=== PATIENT | female | born 1975 | race Caucasian/White ===

== ENCOUNTER 2019-06-21 08:38 | Emergency (ER) | payer OTHER ==
[2019-06-21 08:49] VITALS: BP 118/71; PULSE 97; TEMP 98.1; BMI 29.9
[2019-06-21] MEDS ORDERED: KETOROLAC TROMETHAMINE 60 MG/2 ML VIAL IM ONE (09:06)
[2019-06-21] MEDS ORDERED: KETOROLAC TROMETHAMINE 60 MG/2 ML VIAL ONE (09:19)
--- NOTE | 2019-06-21 09:30 | PDOC ---
History of Present Illness - General Chief Complaint: Pain Stated Complaint: LT. KNEE PAIN Time Seen by Provider: 06/21/19 09:01 History Source: Patient - History of Present Illness Occurred: reports: yesterday Severity: Yes: severe Lower Extremity Pain Location: left: knee Past History - Past Medical History Allergies/Adverse Reactions: Allergies Allergy/AdvReac Type Severity Reaction Status Date / Time No Known Allergies Allergy Verified 06/21/19 08:48 Home Medications: Ambulatory Orders Ibuprofen [Motrin -] 600 mg PO TID #30 tablet 01/18/14 Naproxen 500 mg PO BID #30 tablet 06/21/19 Asthma: No Cancer: No Cardiac Disorders: No COPD: No Diabetes: No HTN: No Seizures: No Thyroid Disease: No - Psycho Social/Smoking Cessation Hx Smoking Status: No Smoking History: Never smoked Have you smoked in the past 12 months: No Number of Cigarettes Smoked Daily: 0 Hx Alcohol Use: No Drug/Substance Use Hx: No Hx Substance Use Treatment: No Review of Systems - Review of Systems Constitutional: No: Chills, Fever Musculoskeletal: Yes: Joint Pain, Joint Swelling *Physical Exam - Vital Signs Last Vital Signs Temp Pulse Resp BP Pulse Ox 98.1 F 97 H 18 118/71 99 06/21/19 08:46 06/21/19 08:46 06/21/19 08:46 06/21/19 08:46 06/21/19 08:46 - Physical Exam General Appearance: Yes: Appropriately Dressed, Moderate Distress HEENT: positive: Normal Voice Neck: positive: Supple Respiratory/Chest: negative: Respiratory Distress Extremity: positive: Swelling (minimal swelling diffusely w/ sig ttp to medially , no obvious effusion, FROMI, limping in facility, no hot, red joint) Integumentary: positive: Dry, Warm Neurologic: positive: Fully Oriented, Alert, Normal Mood/Affect ED Treatment Course - RADIOLOGY Radiology Studies Ordered: Category Date Time Status KNEE 2 POS-LEFT [RAD] Stat Radiology 06/21/19 09:06 Taken Medical Decision Making - Medical Decision Making 06/21/19 09:25 43 yo F, no sig hx, here with severe pain to L knee since yesterday. Pain mostly located to medial knee and hurts to bear weight. Has had intermittent L knee pain since 2010 per patient and sometimes feel her knee "pop out of place" . Has never been evaluated by orthopedics. No recent trauma. Denies any fever or chills. Currently limping. No history of gout or septic joint. No obvious RF for DVT/PE see exam Atraumatic knee pain Recurrent ?MSK, i.e arthritis, etc, no e/o infxn, XR without effusion today, no RF for DVT /PE -dose of toradol given -GRISELDA placed -Dc w/ pain control and ortho referral 06/21/19 09:46 Discharge - Discharge Information Problems reviewed: Yes Clinical Impression/Diagnosis: Knee pain, left Qualifiers: Chronicity: acute Qualified Code(s): M25.562 - Pain in left knee Condition: Good Disposition: HOME - Additional Discharge Information Prescriptions: Naproxen 500 mg PO BID #30 tablet - Follow up/Referral Referrals: Susan Zambrano MD [Primary Care Provider] - - Patient Discharge Instructions Patient Printed Discharge Instructions: DI for Knee Pain Additional Instructions: La causa de del valle dolor de rodilla no est kingsley en julia momento, vickey necesitar nisha evaluacin adicional con ortopedia. Por favor llame al Dr. Martel esta semana para nisha jennifer Print Language: QATARI - Post Discharge Activity Work/Back to School Note: Back to Work
== END 2019-06-21 09:51 | disposition home or self-care (01) ==
LOC: JERFT 08:38
PROC: 3E0233Z Introduction of Anti-inflammatory into Muscle, Percutaneous Approach (ICD-10-PCS; principal; 2019-06-21)
DX: M25.562 Pain in left knee (principal)
CPT/HCPCS: 73560-TC-LT-FY; 96372; 99282-25